=== PATIENT | female | born 1995 | race Caucasian/White ===

== ENCOUNTER 2017-02-05 20:50 | Emergency (ER) | payer SELFPAY ==
[~2017-02-05] VITALS: Ht 157.5 cm; Wt 44.5 kg
[2017-02-05 21:10] VITALS: BP 128/85
[2017-02-05 22:18] LABS: Urine RBC None Seen /hpf (0 - 4)
[2017-02-05 22:25] LABS: Basophils # (auto) 0 uL; Basophils % (auto) 0.3 % (0.0-2.0); Eosinophils # (auto) 0.1 uL; Eosinophils % (auto) 0.6 % (0.0-7.0); Hematocrit 45.2 % (36.0-46.0); Hemoglobin 15.3 g/dL (12.2-16.2); Mean Corpuscular Hemoglobin 29.9 pg (28.0-32.0); Mean Corpuscular Hgb Conc. 33.8 g/dL (32.0-36.0); Mean Corpuscular Volume 88.6 fL (80.0-100.0); Mean Platelet Volume 7.6 fL (7.4-10.4); Monocytes # (auto) 1.2 uL; Monocytes % (auto) 9.6 % (0.0-12.0); Neutrophils # (auto) 7.2 uL; Neutrophils % (auto) 57.5 % (37.0-80.0); Platelet Count (auto) 394 10^3/uL (140-450); Red Cell Distribution Width 13.2 % (11.6-16.0); White Blood Cell 12.5 10^3/uL (4.4-10.8)
[2017-02-05 22:35] LABS: Urine Bilirubin Negative (Negative); Urine Blood Negative /uL (Negative); Urine Color Yellow (Yellow); Urine Ketone Negative (Negative); Urine Nitrite Negative (Negative); Urine Squamous Epithelial Cell FEW /hpf (<5); Urine Urobilinogen Normal (Negative); Urine pH 6.5 (5.0-8.0)
[2017-02-05 22:39] LABS: Urine Glucose 3+ mg/dL (Normal)
[2017-02-05 22:40] LABS: Albumin 4.7 g/dL (3.4-5.0); BUN/Creatinine Ratio 9.5; Bilirubin, Total 0.4 mg/dL (0.2-1.0); Calcium 9.2 mg/dL (8.5-10.1); Potassium 4.2 mmol/L (3.5-5.1); Total Protein 8.3 g/dL (6.4-8.2)
== END 2017-02-06 05:09 | disposition home or self-care (01) ==
LOC: ER 20:50
DX: R81 Glycosuria (principal)
CPT/HCPCS: 36415; 80053; 81001; 81025; 82010; 82962; 83036; 85025